=== PATIENT | male | born 1975 | race Caucasian/White ===

== ENCOUNTER 2019-09-08 13:18 | Outpatient (CLI) | payer OTHER ==
--- NOTE | 2019-09-08 21:51 | XRAY Report ---
Reason: CERVICAL RADICULOPATHY Procedure Date: 09/08/2019 Accession Number: [id number] / [id number] Procedure: WCP - Cervical Spine 2 View CPT Code: Final Report FULL RESULT: EXAM: CERVICAL SPINE RADIOGRAPHY EXAM DATE: 09/08/2019 02:03 PM. CLINICAL HISTORY: CERVICAL RADICULOPATHY. COMPARISONS: None. TECHNIQUE: 3 views. FINDINGS: Alignment: Normal. No spondylolisthesis or scoliosis. Bones: The cervical vertebral bodies and posterior elements are well visualized from the skull base through C7-T1. No fractures or bone lesions. Disks: Normal. Disk heights are maintained. Facets: No degenerative disease. Soft Tissues: Normal. No prevertebral soft tissue swelling. The visualized lung apices are clear. IMPRESSION: Normal cervical spine radiography. [facility]
== END 2019-09-08 23:59 | disposition home or self-care (01) ==
LOC: DI.WCP 13:18
PROVIDERS: ATTEND Family Medicine
DX: M54.12 Radiculopathy, cervical region (principal)
CPT/HCPCS: 72040